=== PATIENT | male | born 1970 | race Caucasian/White ===

== ENCOUNTER 2018-12-18 14:28 | Inpatient (IN) ==
[2018-12-18] MEDS ORDERED: BENTYL PO PRN (18:36)
[2018-12-18] MEDS ORDERED: ROBAXIN PO PRN (18:36)
[2018-12-18] MEDS ORDERED: MOTRIN PO PRN (18:36)
[2018-12-18] MEDS ORDERED: ATARAX PO PRN (18:36)
[2018-12-18] MEDS ORDERED: D5W 1,000 ML IV PRN (18:36)
[2018-12-18] MEDS ORDERED: M.V.I.-12 10 ML, FOLIC ACID 1 MG, MAGNESIUM SULFATE 1 GM, THIAMINE 100 MG in NS 1,000 ML IV ONE (18:36)
[2018-12-18] MEDS ORDERED: PHENOBARBITAL IV PRN (18:36)
[2018-12-18] MEDS ORDERED: DULCOLAX PR PRN (18:36)
[2018-12-18] MEDS ORDERED: IMODIUM PO PRN (18:36)
[2018-12-18] MEDS ORDERED: ZOFRAN ODT PO PRN (18:36)
[2018-12-18] MEDS ORDERED: NICODERM PATCH TD PRN (18:36)
[2018-12-18] MEDS ORDERED: SALINE LOCK IV FLUID XX ONE (18:36)
[2018-12-18] MEDS ORDERED: TUBERSOL ID ONE ×2 (18:36→20:00)
[2018-12-18] MEDS ORDERED: ZOFRAN IV PRN (18:36)
[2018-12-18] MEDS ORDERED: SENOKOT PO PRN (18:36)
[2018-12-18] MEDS ORDERED: MAALOX PLUS LIQUID PO PRN (18:36)
[2018-12-18] MEDS ORDERED: TYLENOL PO PRN (18:36)
[2018-12-18] MEDS ORDERED: LIBRIUM PO SCH (18:45)
[2018-12-18 19:27] LABS: HEMATOCRIT 43.7 % (42.0-52.0); HEMOGLOBIN 15.6 g/dL (14.0-18.0); MCHC 35.7 g/dL (33-37); MCV 92.4 FL (81-99); MPV 9.4 FL (7.4-10.4); RBC 4.73 XMIL (4.7-6.1); RDW 12.7 % (11.5-14.5); WBC 7.94 X1000 (4.8-10.8)
[2018-12-18 19:36] LABS: AGAP 13; ALBUMIN 3.9 g/dL (3.5-5.0); ALKALINE PHOSPHATASE 65 U/L (32-122); BUN 7 mg/dL (8-22); CALCIUM 8.9 mg/dL (8.8-10.2); CHLORIDE 96 mmol/L (98-107); COSMO 275; CREATININE 0.8 mg/dL (0.7-1.2); ESTIMATED GFR > 60; GLUCOSE 184 mg/dL (70-104); GOT 21 U/L (10-34); GPT 29 U/L (10-44); POTASSIUM 3.9 mmol/L (3.5-5.1); SODIUM 136 mmol/L (136-145); TCO2 27 mmol/L (25-35); TOTAL PROTEIN 7.1 g/dL (6.3-8.3)
[2018-12-18 19:44] LABS: AMYLASE 28 U/L (20-200); LIPASE 38 U/L (13-60)
[2018-12-18 19:52] LABS: PROTIME 13.7 Seconds (11.0-16.0)
[2018-12-18] MEDS: LIBRIUM PO SCH (22:29)
[2018-12-18] MEDS: SEROQUEL PO PRN (22:33)
[2018-12-19 01:16] LABS: URINE SOURCE VOIDED
[2018-12-19 01:25] LABS: BILIRUBIN URINE NEGATIVE (NEGATIVE); BLOOD URINE NEGATIVE (NEGATIVE); CLARITY CLEAR (CLEAR); COLOR YELLOW; GLUCOSE URINE NEGATIVE (NEGATIVE); KETONE URINE NEGATIVE (NEGATIVE); LEUKOCYTES URINE TRACE (NEGATIVE); NITRITE URINE NEGATIVE (NEGATIVE); PROTEIN URINE NEGATIVE (NEGATIVE); UROBILINOGEN URINE NORMAL
[2018-12-19 01:40] LABS: UR AMPHETAMINES QUAL NONE DETECTED (NONE DETECT); UR BARBITUATES QUAL NONE DETECTED (NONE DETECT); UR BENZODIAZEPIN QUAL NONE DETECTED (NONE DETECT); UR CANNABINOIDS QUAL NONE DETECTED (NONE DETECT); UR COCAINE QUAL NONE DETECTED (NONE DETECT); UR METHADONE QUAL NONE DETECTED (NONE DETECT); UR METHAMPHETAMINE QUAL NONE DETECTED (NONE DETECT); UR OPIATES QUAL NONE DETECTED (NONE DETECT); UR OXYCODONE QUAL NONE DETECTED (NONE DETECT); UR PCP QUAL NONE DETECTED (NONE DETECT); UR PROPOXYPHENE QUAL NONE DETECTED (NONE DETECT); UR TCA QUAL NONE DETECTED (NONE DETECT)
[2018-12-19 01:44] LABS: URINE EPITHELIAL CELLS <10 /HPF (<10)
[2018-12-19 01:45] LABS: URINE BACTERIA 1+ /HFP; URINE WBC <10 /HPF (<10)
[2018-12-19] MEDS: LIBRIUM PO SCH ×3 (03:12→15:56)
[2018-12-19] MEDS: PROTONIX PO SCH ×3 (07:13→08:52)
[2018-12-19] MEDS: PRINIVIL PO SCH (08:52)
[2018-12-19] MEDS: FOLIC ACID PO SCH (08:52)
[2018-12-19] MEDS: THERA M PLUS PO SCH (08:52)
[2018-12-19] MEDS: VITAMIN B-1 PO SCH (08:52)
[2018-12-20] MEDS: LIBRIUM PO SCH ×4 (00:26→20:58)
--- NOTE | 2018-12-20 00:37 | PROGRESS NOTE ---
DATE: 12/19/2018 SUBJECTIVE: Patient notes overall is starting to feel a little bit better, less muscle aches. Denies any fevers or chills. Denies current tremors. Denies any auditory or visual hallucinations. PHYSICAL EXAMINATION: Vital Signs: Reviewed and stable. Temperature 97.4 degrees, pulse 60, respiratory 20, BP 153/96. General: Patient is awake, alert. He is currently in no respiratory distress. HEENT: Normocephalic. Neck: Supple. Cardiovascular: Regular rate. No murmurs. Chest: Clear and unlabored. Abdomen: Soft, nondistended, nontender. Extremities: Moves all extremities. ASSESSMENT: 1. Hypertension. We will start lisinopril. 2. Nausea and vomiting. 3. Abdominal pain. 4. Myalgias. 5. Paresthesias. 6. Tremors. 7. Alcohol abuse, withdrawal and stabilization. PLAN: We will continue patient in the hospital. Continue Librium taper. Continue lisinopril for his hypertension and we will follow. Hopefully, patient can continue to wean Librium. Further orders as needed. cc: Moisés Henry MD
[2018-12-20] MEDS: PROTONIX PO SCH (06:10)
[2018-12-20] MEDS: PRINIVIL PO SCH (08:48)
[2018-12-20] MEDS: VITAMIN B-1 PO SCH (08:48)
[2018-12-20] MEDS: FOLIC ACID PO SCH (08:48)
[2018-12-20] MEDS: THERA M PLUS PO SCH (08:49)
--- NOTE | 2018-12-20 22:29 | PROGRESS NOTE ---
DATE: 12/20/2018 SUBJECTIVE: Patient states he is feeling better. Denies any tremors. PHYSICAL EXAMINATION: Temp 97.4, pulse 62, respiratory 18, BP 169/81.General: Patient is awake, alert, currently is in no distress. He is pleasant to talk with. HEENT: Normocephalic. Neck: Supple. CARDIOVASCULAR: Regular rate. Chest: Clear, nonlabored. Abdomen: Soft, nondistended. Extremities: Moves all extremities. Neurologic: No changes. ASSESSMENT: 1. Nausea and vomiting. 2. Abdominal pain. 3. Tremors. 4. Myalgias. 5. Alcohol abuse withdrawal and stabilization. PLAN: Continue patient in the hospital. Continue to wean Librium. Continue counseling. Further orders as needed. cc: Moisés Henry MD
[2018-12-21] MEDS: SEROQUEL PO PRN (01:02)
[2018-12-21] MEDS: DESYREL PO PRN (02:55)
[2018-12-21] MEDS: LIBRIUM PO SCH ×4 (04:21→13:06)
[2018-12-21] MEDS: PROTONIX PO SCH (06:48)
[2018-12-21] MEDS ORDERED: REVIA PO ONE (10:33)
[2018-12-21] MEDS: FOLIC ACID PO SCH (10:51)
[2018-12-21] MEDS: THERA M PLUS PO SCH (10:51)
[2018-12-21] MEDS: PRINIVIL PO SCH (10:51)
[2018-12-21] MEDS: VITAMIN B-1 PO SCH (10:51)
[2018-12-22] MEDS: DESYREL PO PRN (02:20)
[2018-12-22] MEDS: PROTONIX PO SCH (06:56)
[2018-12-22 08:14] VITALS: BP 137/78
[2018-12-22] MEDS: THERA M PLUS PO SCH (10:30)
[2018-12-22] MEDS: VITAMIN B-1 PO SCH (10:30)
[2018-12-22] MEDS: FOLIC ACID PO SCH (10:30)
[2018-12-22] MEDS: PRINIVIL PO SCH (10:31)
== END 2018-12-22 13:08 | disposition home or self-care (01) | DRG 897 ==
LOC: P.MEDSURG 15:32
PROVIDERS: ADMIT Family Medicine; ATTEND Family Medicine
CPT/HCPCS: 80053; 80104; 80301; 80305; 80307; 80320; 81001; 82055; 82150; 83690; 85027; 85610; 86580; A9270; G0431; G0434; G0477; G0480; G6040; J3411; J3475; J7030